=== PATIENT | female | born 1965 | race Caucasian/White ===

== ENCOUNTER → 2018-12-14 | Outpatient (REF) | payer BC | LOC: M LAB LCGH 15:10 | PROVIDERS: ATTEND Family Medicine | DX: Z12.4 Encounter for screening for malignant neoplasm of cervix (principal) ==

== ENCOUNTER → 2019-01-21 | Outpatient (REF) | payer BC | LOC: M LAB LCGH 10:06 | PROVIDERS: ATTEND Family Medicine | DX: D23.9 Other benign neoplasm of skin, unspecified (principal) ==